=== PATIENT | male | born 1970 | race African-American/Black ===

== ENCOUNTER 2020-06-23 15:51 | Emergency (ER) | payer SELFPAY ==
[~2020-06-23] VITALS: Ht 182.9 cm; Wt 100.0 kg
[2020-06-23 16:07] VITALS: BP 210/96
== END 2020-06-23 17:00 | disposition left against medical advice (07) ==
LOC: ER 15:51
DX: F15.10 Other stimulant abuse, uncomplicated (principal); F16.10 Hallucinogen abuse, uncomplicated
CPT/HCPCS: 82962; 93005; 99283